=== PATIENT | male | born 1930 | race Caucasian/White ===

== ENCOUNTER → 2017-05-24 | Outpatient (CLI) | payer BC ==
[~2017-05-24] MED LIST: CALC200T PO; COEN1CAP28 PO; DOCU-94 PO; FLM4 PO; FOLI1TAB7 PO; FOLIC ACID PO; Magnesium PO; PSYL55.43 PO; SILO8CAP PO; SIMV40TA2 PO; [UNRECOGNIZED DRUG - OTHER] PO; [UNRECOGNIZED DRUG - OTHER] PO; flecainide; move free PO; testosterone INJ
[2017-05-24 13:10] VITALS: BP 147/74; PULSE 89; TEMP 36.5; O2SAT 96
--- NOTE | 2017-05-24 13:50 | Radiation Oncology Follow-Up ---
Radiation Oncology Follow-Up Date of Visit May 24, 2017. Reason For Visit Mr. Avendaño presents today for his regularly scheduled annual follow-up visit Radiation Completion Date 04/11/2006 History of Present Illness Mr. Avendaño is now 11 years since the completion of his combined modality therapy consisting of hormonal suppression and external radiation with IMRT and IGRT for his prostate cancer. He has been on exogenous testosterone replacement presently under the care of Dr. Pradhan. His prostate-specific antigens have remained low. He has had prior episodes of rectal bleeding but none recently. His urination has remained good. 2 years ago his AUA score was a 10. Last year was an 8 and this year is again 10. He also completed The Expanded Prostate Cancer Index Composite for Clinical Practice. He scored 0 of 12 for urinary incontinence symptom score, 4 of 12 urinary irritation/ obstruction symptom score, 0 of 12 bowel symptom score, 9 of 12 sexual symptom score and 0 of 12 I/hormonal symptom score. His Overall Prostate Cancer Quality of Life Score was 13 out of 60 compared to 14 out of 60 last year. He was previously seen on 04/11/2015. Since that time he has continued to do well with no significant change in medication or in medical history. He has continued receiving testosterone replacement initially every 3 weeks but starting in November of this year it was changed to every 4 weeks. His testosterone in December 2014 was 693 with a free testosterone of 129.6. On 2014 his total testosterone was 538 with free testosterone of 99.5. However on 10/31/2015 his total testosterone was 860 with a free testosterone of 171.1. This prompted the change to injections every 4 weeks. He will have a repeat testosterone level on on March 03 between his January and March injections. The patient has appropriate energy level for his age. He denies any change in bowel symptoms. Specifically no episodes of diarrhea or rectal bleeding. His urination remains acceptable with an AUA score of 10. He had a recent prostate- specific antigen drawn on 10/31/2015. This remained excellent at 0.084. Interim History Mr. Avendaño continues to do well since his last visit in January 2016. He continues to be followed by Dr. Pradhan and is on monthly injections of testosterone. His recent testosterone level drawn on 02/02/2017 was 459.7 ng/ dL. This is well within the normal range. He continues to feel well and is active. His urination remains fairly stable with an AUA score of 9. This compares to an AUA score of 10 last year. He is recently been switched to Rapaflo and appears to be tolerating this well. Patient also completed the expanded prostate cancer index composite for clinical practice (EPIC-CP). His overall prostate cancer quality of life score was 7 of 60. The patient has appropriate energy level for his age. The patient denies any episodes of diarrhea and has had no episodes of rectal bleeding. His most recent prostate-specific antigen was drawn 02/02/2017 and was excellent at 0.14. The patient denies any new medical issues or any other changes in his medical status or medications. Allergies Coded Allergies: No Known Allergies (Verified Allergy, Unknown, 04/19/05) Home Medications Scheduled Calcium Carbonate-Vitamin D (Oscal 500/200 D-3), 2 TAB PO DAILY Coenzyme Q10 (Ubidecarenone) (Co Q10), 200 MG PO DAILY Docusate Sodium (Colace), 1 CAP PO DAILY Folic Acid (Folvite), 1 TAB PO DAILY Psyllium (Metamucil Powder), 1 SCOOPS PO QAM Silodosin (Rapaflo), 1 CAP PO DAILY Simvastatin (Zocor), 40 MG PO QPM [Folic Acid/B Vit Com], 1 TAB PO DAILY [Magnesium], 500 MG PO DAILY [flecainide], 100 MG BID [move free], 2 TAB PO DAILY [pardaxa], 150 MG PO BID [testosterone], 200 MG INJ q 3 weekw Review of Systems Gastrointestinal: Symptoms: WNL Oral: Symptoms: No Problems Respiratory: Symptoms: WNL Urinary: Symptoms: Frequency Physical Exam Vital Signs Date Time Temp Pulse Resp B/P (MAP) Pulse Ox O2 Delivery O2 Flow Rate FiO2 05/24/17 13:10 36.5 89 20 147/74 96 Pain: Patient Pain Scale: 0 - 10 Initial Pain Intensity: 0.0 Fatigue: None General Appearance: WD/WN, no apparent distress Eyes: normal inspection ENT: normal ENT inspection Neck: supple, no adenopathy, no carotid bruits Respiratory/Chest: chest non-tender, lungs clear, normal breath sounds Cardiovascular: regular rate, rhythm, no murmur Abdomen: normal bowel sounds, non tender, soft, no organomegaly Anal / Rectum: On rectal exam there is good sphincter tone. The prostate is flat without induration or nodularity. There are no rectal mucosal abnormalities appreciated. There is no blood on the examining finger. Extremities: normal range of motion, no pedal edema Neurologic/Psychiatric: joint setter II-XII nml as tested, no motor/sensory deficits, alert, normal mood/affect, oriented x 3 Skin: normal color Lymphatic: no adenopathy Assessment & Plan (Attending) Mr. Avendaño continues to do well. His energy level is good and he remains on exogenous testosterone monthly. His recent testosterone level is well within the normal range at 459.7 ng/dL. His recent prostate-specific antigen is also excellent at 0.14. He does continue to have some mild urinary symptoms but his AUA remains stable at 9. His EPIC-CP is good at 7 of 60. We would like to continue to follow him on an annual basis and with his consent will scheduled to see him in one year's time. Total Time In Follow-Up Total Time (Attending) In Follow-Up I spent 15 minutes in examination and discussion with the patient and 10 minutes reviewing his labs, chart and preparation of this document. Copy To Pro,Krishna Queen M.D.
== END | disposition home or self-care (01) ==
LOC: C.ONC 12:57
PROVIDERS: ATTEND Physician Assistant Medical
DX: Z08 Encounter for follow-up examination after completed treatment for malignant neoplasm (principal); Z92.3 Personal history of irradiation; Z85.46 Personal history of malignant neoplasm of prostate

== ENCOUNTER → 2018-01-04 | Outpatient (CLI) | payer BC ==
[~2018-01-04] MED LIST changes: -FLM4 PO; -FOLI1TAB7 PO; +FOLI1TAB8 PO
[2018-01-04 09:36] LABS: HEMATOCRIT 46.4 % (42-52); HEMOGLOBIN 15.6 g/dL (14.0-18.0); MEAN CELL VOLUME 95.1 fL (80-100); MEAN CORPUSCULAR HGB CONC 33.6 g/dl (32-36); MEAN PLATELET VOLUME 10.5 fL (7.4-10.4); PLATELET COUNT 171 K/uL (130-400); RED CELL DISTRIBUTION WIDTH CV 13.1 % (11.5-14.5); RED CELL DISTRIBUTION WIDTH SD 45.7 fL (36.4-46.3); WHITE BLOOD COUNT 6.04 K/uL (4.8-10.8)
[2018-01-04 09:56] LABS: ALT/SGPT 35 U/L (12-78); AST/SGOT 24 U/L (15-37); BLOOD UREA NITROGEN 19 mg/dl (7-18); CALCIUM 9.1 mg/dl (8.5-10.1); CARBON DIOXIDE 29 mmol/L (21-32); CHOLESTEROL 143 mg/dl (0-200); CREATININE 1.09 mg/dl (0.60-1.40); GLUCOSE 105 mg/dl (70-99); POTASSIUM 3.8 mmol/L (3.5-5.1); SODIUM 138 mmol/L (136-145)
[2018-01-04 10:01] LABS: LDL CHOLESTEROL CALCULATED 62 mg/dl
== END | disposition home or self-care (01) ==
LOC: C.LAB1850 07:52
PROVIDERS: ATTEND Internal Medicine
DX: E78.00 Pure hypercholesterolemia, unspecified (principal); C61 Malignant neoplasm of prostate; I48.91 Unspecified atrial fibrillation